=== PATIENT | male | born 1955 | race Caucasian/White ===

== ENCOUNTER 2025-06-01 11:12 | Inpatient (IN) | payer MEDICARE, BC ==
[~2025-06-01] VITALS: Ht 172.7 cm; Wt 72.6 kg
[2025-06-01 11:14] VITALS: BP 132/86
[2025-06-01] MEDS ORDERED: PYRI25TA4 PO (11:45)
[2025-06-01] MEDS ORDERED: FURO-152 PO (11:45)
[2025-06-01] MEDS ORDERED: FERR-68 PO (11:45)
[2025-06-01] MEDS ORDERED: SIME80TA15 PO (11:45)
[2025-06-01] MEDS ORDERED: MULT-213 PO (11:45)
[2025-06-01] MEDS ORDERED: DIVA500T4 PO (11:45)
[2025-06-01] MEDS ORDERED: TRAZ-182 PO (11:45)
[2025-06-01] MEDS ORDERED: MELA5TAB20 PO (11:45)
[2025-06-01] MEDS ORDERED: FOLI1TAB94 PO (11:45)
[2025-06-01] MEDS ORDERED: ASCO500C18 PO (11:45)
[2025-06-01] MEDS ORDERED: THIA100T74 PO (11:45)
[2025-06-01] MEDS ORDERED: LACT1TAB12 PO (11:45)
[2025-06-01] MEDS ORDERED: CRAN450T9 PO (15:32)
[2025-06-01] MEDS ORDERED: MELA3TAB41 PO (15:32)
[2025-06-01] MEDS ORDERED: ASCO500T85 PO (15:32)
[2025-06-01 15:57] VITALS: BP 112/84; TEMP 98; O2SAT 100
[2025-06-01] MEDS: BLOOD SUGAR DIAGNOSTIC 1 EACH STRIP VI ONE (16:02)
[2025-06-01] MEDS ORDERED: SIMETHICONE 80 MG TAB.CHEW PO PRN (16:15)
[2025-06-01] MEDS ORDERED: MAG HYDROX/AL HYDROX/SIMETH 30 ML LIQUID UDC PO PRN (17:00)
[2025-06-01] MEDS ORDERED: ACETAMINOPHEN 325 MG TABLET PO PRN (17:00)
[2025-06-01] MEDS ORDERED: MAGNESIUM HYDROXIDE 30 ML LIQUID UDC PO PRN (17:00)
[2025-06-01] MEDS: FERROUS SULFATE 325 MG TABEC PO SCH (17:37)
[2025-06-01 20:00] VITALS: BP 103/72; TEMP 97.8; O2SAT 100
[2025-06-01] MEDS ORDERED: ZOLPIDEM 5 MG TABLET PO PRN (20:00)
[2025-06-01] MEDS: CULTURELLE CAPSULE PO SCH (22:02)
[2025-06-01] MEDS: QUETIAPINE FUMARATE 25 MG TABLET PO PRN (22:02)
[2025-06-01] MEDS: MELATONIN 3 MG TABLET PO PRN (22:03)
[2025-06-02 08:16] VITALS: BP 107/73; TEMP 98; O2SAT 98
[2025-06-02 08:18] LABS: ASPARTATE AMINOTRANSFERASE 7 U/L (15-37); CREATININE 1.1 mg/dL (0.6-1.3); SODIUM SERUM 145 mmol/L (136-145); TOTAL PROTEIN, SERUM 6.9 g/dL (6.4-8.2); UREA NITROGEN, BLOOD 16 mg/dL (7-18)
[2025-06-02] MEDS: MULTIVITAMINS,THERAPEUTIC TABLET PO SCH (09:08)
[2025-06-02] MEDS: ASCORBIC ACID 500 MG TABLET PO SCH (09:11)
[2025-06-02] MEDS: FUROSEMIDE 20 MG TABLET PO SCH (09:11)
[2025-06-02] MEDS: THIAMINE HCL 100 MG TABLET PO SCH (09:12)
[2025-06-02] MEDS: FOLIC ACID 1 MG TABLET PO SCH (09:40)
[2025-06-02] MEDS: DIVALPROEX 125 MG TABLET.DR PO SCH (13:24)
[2025-06-02 15:37] VITALS: BP_SYST 98; BP_DIAS 58; BP_DIAS 68; TEMP 98; O2SAT 98
[2025-06-02 20:00] VITALS: BP 147/86; TEMP 97.5; O2SAT 100
[2025-06-02] MEDS: ZOLPIDEM 5 MG TABLET PO SCH (21:00)
[2025-06-02] MEDS: QUETIAPINE FUMARATE 25 MG TABLET PO SCH (21:20)
[2025-06-03 08:24] VITALS: BP 96/57; TEMP 98; O2SAT 98
[2025-06-03] MEDS: POTASSIUM CHLORIDE 20 MEQ TAB.PRT.SR PO SCH (08:55)
[2025-06-03 16:00] VITALS: BP 110/67; TEMP 98.3; O2SAT 100
[2025-06-03 19:34] VITALS: BP 120/69; TEMP 97.9; O2SAT 100
[2025-06-04 06:22] LABS: PLATELET COUNT (AUTO) 300 K/uL (152-348); RED BLOOD CELL COUNT(AUTO) 3.19 MIL/uL (4.06-5.63); RED CELL DISTRIBUTION WIDTH 15.2 % (12.1-16.2); WHITE BLOOD COUNT (AUTO) 4.5 K/uL (3.6-10.2)
[2025-06-04 06:35] LABS: CREATININE 1.0 mg/dL (0.6-1.3); SODIUM SERUM 144.0 mmol/L (136-145); UREA NITROGEN, BLOOD 18.0 mg/dL (7-18)
[2025-06-04 06:40] VITALS: BP 113/68; TEMP 98.1; O2SAT 99
[2025-06-04 07:35] VITALS: BP 95/62; TEMP 98.3; O2SAT 100
[2025-06-04 08:39] LABS: LYMPHOCYTES % (MANUAL) 22 % (20-40); NEUTROPHILS % (MANUAL) 45 % (42-75)
[2025-06-04 08:40] LABS: EOSINOPHILS % (MANUAL) 18 % (0-8); MONOCYTES % (MANUAL) 15 % (2-10); PLATELET ESTIMATE ADEQUATE
[2025-06-04] MEDS ORDERED: DIVALPROEX 125 MG TABLET.DR PO SCH ×2 (13:30→17:00)
[2025-06-04] MEDS: DIVALPROEX 250 MG TABLET.DR PO SCH (14:17)
[2025-06-04] MEDS: QUETIAPINE FUMARATE 25 MG TABLET PO SCH (14:18)
[2025-06-04] MEDS: VANCOMYCIN HCL 250 MG CAPSULE PO SCH (14:19)
[2025-06-04 15:43] VITALS: BP 102/59; TEMP 98.6; O2SAT 100
[2025-06-04 19:38] VITALS: BP 100/62; TEMP 99.4; O2SAT 97
[2025-06-04] MEDS: QUETIAPINE FUMARATE 100 MG TABLET PO SCH (20:33)
[2025-06-04] MEDS ORDERED: QUETIAPINE FUMARATE 25 MG TABLET PO SCH (21:00)
[2025-06-05 07:35] VITALS: BP 91/60; TEMP 97.9; O2SAT 98
[2025-06-05 15:45] VITALS: BP 104/64; TEMP 98.8; O2SAT 100
[2025-06-05 19:00] VITALS: BP 95/67; TEMP 99.7; O2SAT 97
[2025-06-06 06:41] VITALS: BP 99/63; TEMP 97.7; O2SAT 99
[2025-06-06 11:47] VITALS: BP 97/66; TEMP 98.3; O2SAT 100
[2025-06-06] MEDS ORDERED: DIVALPROEX 250 MG TABLET.DR PO SCH (13:00)
[2025-06-06] MEDS: DIVALPROEX 500 MG TABLET.DR PO SCH (13:10)
[2025-06-06 16:22] VITALS: BP 100/59; TEMP 98.2; O2SAT 99
[2025-06-06 19:45] VITALS: BP 106/75; TEMP 98.5; O2SAT 97
[2025-06-07 12:00] VITALS: BP 93/56; TEMP 98.6; O2SAT 100
[2025-06-07] MEDS: QUETIAPINE FUMARATE 25 MG TABLET PO SCH (13:27)
[2025-06-07 16:08] VITALS: BP 104/63; O2SAT 99
[2025-06-07] MEDS: QUETIAPINE FUMARATE 25 MG TABLET PO PRN (16:16)
[2025-06-07 19:30] VITALS: BP 86/62; TEMP 97.9; O2SAT 100
[2025-06-07 20:32] VITALS: BP 97/62; TEMP 97.8; O2SAT 97
[2025-06-07] MEDS: QUETIAPINE FUMARATE 100 MG TABLET PO SCH (21:39)
[2025-06-08 06:42] LABS: PLATELET COUNT (AUTO) 342 K/uL (152-348); RED BLOOD CELL COUNT(AUTO) 3.21 MIL/uL (4.06-5.63); RED CELL DISTRIBUTION WIDTH 15.2 % (12.1-16.2); WHITE BLOOD COUNT (AUTO) 5.0 K/uL (3.6-10.2)
[2025-06-08 06:58] LABS: CREATININE 1.1 mg/dL (0.6-1.3); SODIUM SERUM 143.0 mmol/L (136-145); UREA NITROGEN, BLOOD 22.0 mg/dL (7-18)
[2025-06-08 08:13] VITALS: BP 102/63; TEMP 98.2; O2SAT 100
[2025-06-08 16:04] VITALS: BP 108/64; TEMP 97.7; O2SAT 98
[2025-06-08] MEDS: VANCOMYCIN HCL 125 MG CAPSULE PO SCH (17:51)
[2025-06-08] MEDS ORDERED: VANCOMYCIN HCL 250 MG CAPSULE PO SCH (18:00)
[2025-06-08 19:50] VITALS: BP 107/71; TEMP 98.5; O2SAT 98
[2025-06-09 04:00] VITALS: BP 100/67; TEMP 98.5; O2SAT 98
[2025-06-09 07:46] LABS: HIV-1/2 ANTIBODY NON REACTIVE (NONREACTIVE)
[2025-06-09 11:07] VITALS: BP 106/74; TEMP 98; O2SAT 96
[2025-06-09 15:54] VITALS: BP 100/65; TEMP 98.4; O2SAT 100
[2025-06-09 20:10] VITALS: BP 110/61; TEMP 97.8; O2SAT 97
[2025-06-10 04:48] VITALS: BP 103/73; TEMP 97.9; O2SAT 100
[2025-06-10 11:36] VITALS: BP 97/60; TEMP 97.5; O2SAT 98
[2025-06-10 16:00] VITALS: BP 97/64; TEMP 98.6; O2SAT 95
[2025-06-10 19:48] VITALS: BP 110/67; TEMP 98.3; O2SAT 100
[2025-06-11 12:00] VITALS: BP 115/65; TEMP 98.1; O2SAT 99
[2025-06-11 15:58] VITALS: BP 106/71; TEMP 97.7; O2SAT 100
[2025-06-12 05:34] VITALS: BP 101/68; TEMP 97.4; O2SAT 96
[2025-06-12 10:51] VITALS: BP 101/65; TEMP 98.4; O2SAT 99
[2025-06-12] MEDS ORDERED: VANC125C11 PO (12:30)
[2025-06-12 15:21] VITALS: BP 90/63; TEMP 98.2; O2SAT 96
[2025-06-12] MEDS ORDERED: DIVA250T4 PO (17:42)
[2025-06-12] MEDS ORDERED: QUET25TA PO (17:42)
[2025-06-12] MEDS ORDERED: QUET100T PO (17:42)
== END 2025-06-12 18:50 | disposition home or self-care (01) | DRG 641 ==
LOC: ER 11:13 → GPS 13:58 → GPSOV3 06-03 16:09
PROVIDERS: ADMIT Psychiatry & Neurology Psychiatry; ATTEND Nurse Practitioner Acute Care
DX: E87.1 Hypo-osmolality and hyponatremia (principal); R45.851 Suicidal ideations; F03.93 Unspecified dementia, unspecified severity, with mood disturbance; A04.71 Enterocolitis due to Clostridium difficile, recurrent; N18.2 Chronic kidney disease, stage 2 (mild); G47.33 Obstructive sleep apnea (adult) (pediatric); G47.00 Insomnia, unspecified; J44.9 Chronic obstructive pulmonary disease, unspecified; D64.9 Anemia, unspecified; Z91.410 Personal history of adult physical and sexual abuse; R26.81 Unsteadiness on feet; F31.9 Bipolar disorder, unspecified
CPT/HCPCS: 36415; 70030-TC; 80164; 83735; 84100; 85025; 86803; 87806; A4663; J3490; J8499